=== PATIENT | male | born 1970 | race African-American/Black ===

== ENCOUNTER 2017-10-27 12:01 | Emergency (ER) | payer OTHER ==
[~2017-10-27] VITALS: Ht 193 cm; Wt 117.9 kg
[2017-10-27 13:20] VITALS: BP 135/93
== END 2017-10-27 13:20 | disposition home or self-care (01) ==
LOC: ER 12:01
DX: S80.01XA Contusion of right knee, initial encounter (principal); W10.9XXA Fall (on) (from) unspecified stairs and steps, initial encounter; Y93.89 Activity, other specified; Y92.89 Other specified places as the place of occurrence of the external cause; Y99.8 Other external cause status